=== PATIENT | male | born 1960 ===

== ENCOUNTER 2024-02-29 14:29 | Outpatient (CLI) | payer MEDICARE, OTHER, SELFPAY ==
--- NOTE | 2024-02-29 14:33 | MR_ITS ---
WS: [id number] MRI BRAIN WITH AND WITHOUT CONTRAST HISTORY: BINOCULAR DIPLOPIA COMPARISON: None available. TECHNIQUE: Multiplanar imaging performed through the brain with MultiHance 20 ml's IV. No acute infarcts are seen. King-white matter differentiation is well preserved. Mild cerebral atroph y. Remote small infarct in the LEFT genao radiata. No hemorrhage. Normal hippocampal formations. No susceptibility artifacts or prior lacunar infarcts. Ventricles and extra-axial spaces are normal. Clivus and pituitary gland are normal. Visualized posterior fossa and brainstem are also normal. Postcontrast images are negative for masses or vascular malformations. Dural venous sinuses are normal. Paranasal sinuses: Well aerated with no significant disease. Mastoid air cells: Normal. Calvarium and scalp: Normal. MR/MR head wo/w con [id number] IMPRESSION: 1. No acute infarct. No hemorrhage. 2. Remote small LEFT genao radiata infarct. 3. Very mild cerebral atrophy. No hydrocephalus.
[2024-02-29] MEDS: gadobenate dimeglumine 20 mL vial IV (15:17)
== END 2024-02-29 14:30 | disposition home or self-care (01) ==
LOC: RAD 14:32
PROVIDERS: PCP Family Medicine; Visit Provider Family Medicine
DX: I63.512 Cerebral infarction due to unspecified occlusion or stenosis of left middle cerebral artery (principal); H53.2 Diplopia
CPT/HCPCS: 70553